=== PATIENT | female | born 1995 | race Caucasian/White ===

== ENCOUNTER 2016-05-15 02:57 | Emergency (ER) | payer OTHER ==
[2016-05-15 03:50] LABS: EOSINOPHIL 0.4 % (0-5); HCT 43.3 % (37.0-47.0); HGB 14.8 g/dl (12.5-16.0); LYMPHOCYTE 46.7 % (15-48); MCH 31.4 pg (25.0-31.0); MCHC 34.2 g/dL (32.0-36.0); MCV 91.9 fL (78.0-100.0); MONOCYTE 7.7 % (0-12); MPV 11.3 fL (6.0-9.5); NEUTROPHIL 44.2 % (41-80); PLT 159 K/uL (150-400); RBC 4.71 M/uL (4.20-5.40); RDW 12.4 % (11.5-14.0)
[2016-05-15 03:59] LABS: BILIRUBIN NEGATIVE (NEGATIVE); BLOOD TRACE-INTACT Ery/uL (NEGATIVE); CLARITY CLEAR (CLEAR); COLOR YELLOW (YELLOW); GLUCOSE (U) NORMAL (NORMAL); KETONE (U) TRACE mg/dL (NEGATIVE); LEUKOCYTES NEGATIVE Leu/uL (NEGATIVE); NITRITE NEGATIVE (NEGATIVE); PROTEIN NEGATIVE (NEGATIVE); SPECIFIC GRAVITY 1.025 (1.001-1.030); UROBILINOGEN 0.2 mg/dL (0.2-1.0)
[2016-05-15 04:05] LABS: BACTERIA TRACE; MUCOUS TRACE; URINARY WBC RARE
[2016-05-15 04:11] LABS: ALBUMIN 4.8 g/dL (3.5-5.0); BILIRUBIN - TOTAL 0.3 mg/dL (0.1-1.0); CREATININE 0.8 mg/dL (0.5-1.0); GLOBULIN (CALCULATION) 2.7 g/dL (2.2-4.2); POTASSIUM 3.1 mmol/L (3.5-5.1); TOTAL PROTEIN 7.5 g/dL (6.4-8.3)
== END 2016-05-15 05:23 | disposition home or self-care (01) ==
LOC: FER 02:57
PROVIDERS: Emergency Medicine Emergency Medical Services
DX: F41.8 Other specified anxiety disorders (principal); R07.89 Other chest pain; E87.6 Hypokalemia; R20.2 Paresthesia of skin; Z88.8 Allergy status to other drugs, medicaments and biological substances
CPT/HCPCS: 36415; 36600; 71020; 80053; 81001; 82803; 84484; 85025; 93005; J1885; J2060

== ENCOUNTER 2016-05-28 02:10 | Emergency (ER) | payer OTHER ==
[2016-05-28 02:59] LABS: BASOPHIL 0.2 % (0-2); EOSINOPHIL 0.2 % (0-5); HGB 14.3 g/dl (12.5-16.0); LYMPHOCYTE 30.7 % (15-48); MCH 31.6 pg (25.0-31.0); MCV 92.7 fL (78.0-100.0); MONOCYTE 5.8 % (0-12); NEUTROPHIL 63.1 % (41-80); PLT 194 K/uL (150-400); RBC 4.53 M/uL (4.20-5.40); RDW 12.5 % (11.5-14.0); WBC 8.5 K/uL (4.0-10.5)
[2016-05-28 03:14] LABS: CREATININE 0.8 mg/dL (0.5-1.0); POTASSIUM 3.7 mmol/L (3.5-5.1)
== END 2016-05-28 05:01 | disposition home or self-care (01) ==
LOC: FER 02:10
PROVIDERS: Emergency Medicine Emergency Medical Services
DX: F41.9 Anxiety disorder, unspecified (principal); R20.2 Paresthesia of skin; F17.210 Nicotine dependence, cigarettes, uncomplicated; Z88.8 Allergy status to other drugs, medicaments and biological substances; Z96.22 Myringotomy tube(s) status
CPT/HCPCS: 36415; 71020; 80048; 84484; 85025; 85379; 93005

== ENCOUNTER 2021-01-25 14:42 | Emergency (ER) | payer OTHER ==
[~2021-01-25 14:42] MED LIST: KEFLEX500 MG PO; PREDNISONE50 MG PO
[2021-01-25 17:21] LABS: BASOPHIL 0.4 % (0-2); EOSINOPHIL 3.3 % (0-5); HCT 39.8 % (37.0-47.0); LYMPHOCYTE 36.5 % (15-48); MCH 29.1 pg (25.0-31.0); MCHC 32.7 g/dL (32.0-36.0); MONOCYTE 7.5 % (0-12); MPV 10.8 fL (6.0-9.5); NEUTROPHIL 52.2 % (41-80); NRBC 0; PLT 192 K/uL (150-400); RBC 4.47 M/uL (4.20-5.40); RDW 12.2 % (11.5-14.0); WBC 6.9 K/uL (4.0-10.5)
[2021-01-25 17:38] LABS: ALBUMIN 3.4 g/dL (3.4-5.0); BILIRUBIN - TOTAL 0.1 mg/dL (0.2-1.0); BUN/CREAT RATIO (CALC) 13.4 RATIO; CREATININE 0.67 mg/dL (0.51-0.95); GLOBULIN (CALCULATION) 3.6 g/dL; POTASSIUM 4.5 mmol/L (3.5-5.1)
[2021-01-25] MEDS ORDERED: CEPHALEXIN500 M1 PO (18:53)
[2021-01-25] MEDS ORDERED: PREDNISONE50 MG PO (18:53)
== END 2021-01-25 19:23 | disposition home or self-care (01) ==
LOC: FER 14:42
PROVIDERS: Internal Medicine
DX: R21 Rash and other nonspecific skin eruption (principal); F17.210 Nicotine dependence, cigarettes, uncomplicated
CPT/HCPCS: 36415; 80053; 85025; J2930

== ENCOUNTER 2021-10-05 22:41 | Emergency (ER) | payer OTHER ==
[~2021-10-05 22:41] MED LIST changes: +CEPHALEXIN500 M1 PO; +LIDOCAINE HCL100 ML SSP; +MEDROL 4MG DOSEP4 MG PO
[2021-10-06] MEDS ORDERED: VIBRAMYCIN100 MG PO (00:36)
[2021-10-06] MEDS ORDERED: MEDROL 4MG DOSEP4 MG PO (00:36)
== END 2021-10-06 01:02 | disposition home or self-care (01) ==
LOC: FER 22:41
DX: T65.891A Toxic effect of other specified substances, accidental (unintentional), initial encounter (principal); L03.113 Cellulitis of right upper limb; F17.290 Nicotine dependence, other tobacco product, uncomplicated; Z28.310 Unvaccinated for COVID-19
CPT/HCPCS: 99283; J1100